=== PATIENT | female | born 1955 | race Caucasian/White ===

== ENCOUNTER 2019-11-19 05:59 | Day surgery (SDC) | payer OTHER ==
[~2019-11-19] VITALS: Ht 167.6 cm; Wt 121.1 kg
[~2019-11-19 05:59] MED LIST: Arnica120 ML TOP; CALCIUM CARBON; CARV3.125 PO; CELERY SEED OI500 ML PO; DICLOFEN 3%-HYA30 GM TOP; Flonase 0.05% N16 GM; NAPR220 PO; OMEGA-3 KRILL1 EAC4 PO; TRIHYD253A PO; TURMERIC500 MG PO
--- NOTE | 2019-11-19 06:36 | NUR ---
PT ADMITTED TO [facility]. AGREES WITH PLANNED SURGERY. LUNG SOUNDS CLEAR.
[2019-11-19] MEDS ORDERED: Pataday2.5 ML (06:40)
[2019-11-19] MEDS ORDERED: DYAZIDE 37.5-21 EACH PO (11:41)
[2019-11-20 05:38] LABS: BASOPHILS ABSOLUTE AUTO 0.03 K/mm3 (0.00-0.23); BASOPHILS PERCENT AUTO 0 % (0-2); EOSINOPHILS PERCENT AUTO 0 % (0-6); Hematocrit 29.1 % (33.0-51.0); Hemoglobin 9.6 g/dL (11.5-16.0); IMMATURE GRAN ABSOLUTE AUTO 0.14 K/mm3 (0.00-0.10); IMMATURE GRAN PERCENT AUTO 1 % (0-1); LYMPHOCYTES PERCENT AUTO 6 % (21-46); MONOCYTES ABSOLUTE AUTO 1.88 K/mm3 (0.16-1.47); MONOCYTES PERCENT AUTO 10 % (4-13); Mean Corpuscular HGB 28.4 pg (26.0-34.0); Mean Corpuscular Volume 86 fL (80-100); Mean Platelet Volume 10.4 fL (9.1-12.4); NEUTROPHILS ABSOLUTE AUTO 15.74 K/mm3 (1.96-9.15); NEUTROPHILS PERCENT AUTO 83 % (41-73); Platelet Count 372 K/mm3 (150-400); RDW Coefficient Variation 13.9 % (11.7-14.2); RDW Standard Deviation 43.5 fL (35.1-46.3); Red Blood Cell Count 3.38 M/mm3 (3.80-5.20); White Blood Cell Count 18.89 K/mm3 (4.00-11.30)
--- NOTE | 2019-11-20 05:51 | NUR ---
POD 1 S/P R ROBBIE. PT VSS, BP ELEVATED THIS AM PRIOR TO PAIN MEDS. DRESSINGS CDI; HIP SOFT TO PALP. PAIN MGD W/PO MEDS +SCHEDULED TORADOL. PT SE REG PO, NO C/O N/V, IS VOIDING URINE W/O DIFFICULTY. PT AMB IN ROOM W/FWW+EARLY CHILDHOOD EDUCATION COORDINATOR, SE WELL. PT USING CALL LIGHT FOR ASSISTNACE, WILL CONT TO MONITOR UNTIL REP GIVEN TO ONCOMING RN.
[2019-11-20 05:59] LABS: Anion Gap 7 mmol/L (6-16); Blood Urea Nitrogen 21 mg/dL (8-24); Bun/Creatinine Ratio 25.2 (12.0-20.0); CO2, Blood 28 mmol/L (21-32); Calcium, Blood 7.9 mg/dL (8.5-10.1); Chloride, Blood 99 mmol/L (98-108); Creatinine, Blood 0.83 mg/dL (0.40-1.00); Glomerular Filtration Rate >60 (60-); Glucose, Blood 135 mg/dL (70-99); Magnesium, Blood 1.7 mg/dL (1.6-2.4); Potassium, Blood 3.8 mmol/L (3.5-5.5); Sodium, Blood 134 mmol/L (136-145)
--- NOTE | 2019-11-20 10:00 | NUR ---
PATIENT HYPOTENSIVE WHILE WORKING WITH PT. C/O DIZZINESS. IV FLUIDS INFUSING. ZOFRAN ADMIN FOR C/O NAUSEA. RECLINING IN CHAIR, FEET ELEVATED. BP NOW 105/64. P 81. CONT TO MONITOR.
[2019-11-20] MEDS ORDERED: ASPI325 PO (13:06)
[2019-11-20] MEDS ORDERED: CLIN300 PO (13:07)
[2019-11-20] MEDS ORDERED: OXYC5 PO (13:08)
[2019-11-20] MEDS ORDERED: PROM25 PO (13:09)
--- NOTE | 2019-11-20 16:17 | NUR ---
PATIENT D/C'D HOME WITH SPOUSE AT THIS TIME; BOTH STATE UNDERSTANDING OF MEDS, WOUND CARE, ACTIVITY, F/U APPT, OP PT, ETC. PATIENT'S BP HAS REMAINED STABLE; NO C/O DIZZINESS OR NAUSEA THIS AFTERNOON. TOLERATING DIET, VOIDING. PAIN CONTROLLED WITH OXYCODONE 2.5 MG PER PATIENT. R HIP DRESSING CDI. CIRC CHECKS WNL. NO C/O AT THIS TIME.
== END 2019-11-20 16:15 | disposition home or self-care (01) ==
LOC: ORSCMMR 05:59 → SURS 06:38 → ORSCMMR 06:38 → ORD 07:30 → SURS 11:06 → ORSCMMR 11-20 16:15 → SURS 11-20 16:15 → ORD 12-17 07:30
PROVIDERS: Orthopaedic Surgery
PROC: 0SR90JA Replacement of Right Hip Joint with Synthetic Substitute, Uncemented, Open Approach (ICD-10-PCS; principal; 2019-11-19 07:30)
PROC: 8E0YXBZ Computer Assisted Procedure of Lower Extremity (ICD-10-PCS; principal; 2019-11-19 07:30)
DX: M16.11 Unilateral primary osteoarthritis, right hip (principal); I10 Essential (primary) hypertension; E78.5 Hyperlipidemia, unspecified; G47.33 Obstructive sleep apnea (adult) (pediatric); Z79.899 Other long term (current) drug therapy; E66.01 Morbid (severe) obesity due to excess calories; Z68.41 Body mass index [BMI] 40.0-44.9, adult
CPT/HCPCS: 36415; 72170; 80048; 82947; 83735; 85025; 88300; 97110; 97116; 97162; 97165; 97530; 97535; C1713; C1776; J0171; J0690; J0735; J1100; J1885; J2250; J2370; J2405; J2704; J2710; J2765; J2795; J3010; J7120

== ENCOUNTER → 2021-10-31 | Outpatient (CLI) | payer OTHER ==
[~2021-10-31] MED LIST changes: +ASPI325 PO; +CLIN300 PO; +DYAZIDE 37.5-21 EACH PO; +OXYC5 PO; +PROM25 PO; +Pataday2.5 ML
== END | disposition home or self-care (01) ==
LOC: LAB SHORT 12:24
DX: L57.0 Actinic keratosis (principal)
CPT/HCPCS: 88305

== ENCOUNTER 2023-10-01 13:27 | Day surgery (SDC) | payer OTHER ==
[~2023-10-01] VITALS: Ht 167.6 cm; Wt 129.8 kg
[~2023-10-01 13:27] MED LIST changes: +CELERY SEED EXTRACT; +ELDERBERRY; +KRILL OIL500 MG; +MORINGA; +NAPR220; -NAPR220 PO; +TART CHERRY; +VITAMIN D3; +[UNRECOGNIZED DRUG - OTHER]
[2023-10-01] MEDS ORDERED: ZYRTEC10 M2 (13:51)
[2023-10-01] MEDS ORDERED: TOCO1000 PO (13:51)
[2023-10-01] MEDS ORDERED: ZYRTEC10 M2 PO (13:51)
--- NOTE | 2023-10-01 14:58 | NUR ---
10/01/23 1458 Gisselle Garcia TIME OUT DONE AT BEDSIDE AT [address] LALA AND RN KXP. DR LALA THEN PERFORMED POPLITEAL BLOCK. PT WITH 5L 02 VIA AK THROUGHOUT PROCEDURE. TOLERATED PROCEDURE WELL.
[2023-10-01 16:43] VITALS: BP 154/87
--- NOTE | 2023-10-01 16:47 | NUR ---
10/01/23 1647 Radha Willoughby PT STATES PAIN IS 5/10 AFTER SECOND DOSE OF FENTANYL.
== END 2023-10-01 17:06 | disposition home or self-care (01) ==
LOC: ORSCSDS 13:27
PROVIDERS: Podiatrist Foot & Ankle Surgery
PROC: 0L8P0ZZ Division of Left Lower Leg Tendon, Open Approach (ICD-10-PCS; principal; 2023-10-01 14:45)
PROC: 0QBM0ZZ Excision of Left Tarsal, Open Approach (ICD-10-PCS; principal; 2023-10-01 14:45)
DX: M76.62 Achilles tendinitis, left leg (principal); M77.32 Calcaneal spur, left foot; I10 Essential (primary) hypertension; G47.33 Obstructive sleep apnea (adult) (pediatric); K21.9 Gastro-esophageal reflux disease without esophagitis; E66.01 Morbid (severe) obesity due to excess calories; Z68.42 Body mass index [BMI] 45.0-49.9, adult; Z79.899 Other long term (current) drug therapy
CPT/HCPCS: 82947; A9270; C1713; J0690; J1100; J2405; J2704; J2795; J3010; J7120